=== PATIENT | male | born 1965 | race Two or more races ===

== ENCOUNTER → 2021-01-24 | Emergency (ER) | payer OTHER ==
[~2021-01-24] VITALS: Ht 177.8 cm; Wt 83.9 kg
[~2021-01-24] MED LIST: PEPCID40 MG PO; PROTONIX40 MG PO
== END | disposition home or self-care (01) ==
LOC: ER 21:43
DX: K29.60 Other gastritis without bleeding (principal)

== ENCOUNTER 2025-03-16 00:18 | Emergency (ER) | payer OTHER ==
[~2025-03-16] VITALS: Ht 165.1 cm; Wt 72.6 kg
[2025-03-16 02:02] LABS: HEMATOCRIT 37.4 % (40.1-51.0); HEMOGLOBIN 13.1 g/dL (13.7-17.5); MEAN CORPUSCULAR HEMOGLOBIN 28.9 pg (25.6-32.2); PLATELET COUNT 188 K/uL (163-369); RED BLOOD COUNT 4.53 M/uL (4.63-6.08)
[2025-03-16 02:03] LABS: LYMPH % 27.9 % (19.3-53.1); MONO % 10.8 % (4.7-12.5)
[2025-03-16 02:04] LABS: BASO % 0.5 % (0.1-1.2); EOS % 1.6 % (0.7-7.0); LYMPH # 1.21 (1.18-3.74); MONO # 0.47 (0.24-0.82); NEUT # 2.56 (1.56-6.13)
[2025-03-16 02:05] LABS: EOS # 0.07 (0.04-0.54)
[2025-03-16] MEDS ORDERED: VALACYCLOVIR1000 MG PO (02:15)
== END 2025-03-16 02:27 | disposition home or self-care (01) ==
LOC: ER 01:31
PROVIDERS: General Practice
DX: R21 Rash and other nonspecific skin eruption (principal)

== ENCOUNTER 2025-08-23 16:06 | Emergency (ER) | payer OTHER ==
[~2025-08-23] VITALS: Ht 177.8 cm; Wt 78.0 kg
[~2025-08-23 16:06] MED LIST changes: +VALACYCLOVIR1000 MG PO
[2025-08-23] MEDS ORDERED: ORPHENADRINE CITRATE 30 MG/ML AMPUL IM ONE (16:30)
[2025-08-23] MEDS ORDERED: KETOROLAC TROMETHAMINE 60 MG VIAL IM ONE ×2 (16:30→16:34)
[2025-08-23] MEDS ORDERED: ORPHENADRINE CITRATE 30 MG/ML AMPUL ONE (16:33)
[2025-08-23] MEDS ORDERED: NEURONTIN300 MG PO (19:41)
[2025-08-23] MEDS ORDERED: NORFLEX100MG PO (19:41)
== END 2025-08-23 21:19 | disposition home or self-care (01) ==
LOC: ER 16:06
DX: M54.16 Radiculopathy, lumbar region (principal)

== ENCOUNTER 2025-08-30 12:18 | Emergency (ER) | payer OTHER ==
[~2025-08-30] VITALS: Ht 177.8 cm; Wt 78.5 kg
[~2025-08-30 12:18] MED LIST changes: +NEURONTIN300 MG PO; +NORFLEX100MG PO
[2025-08-30] MEDS ORDERED: PRESION (12:33)
[2025-08-30] MEDS ORDERED: ORPHENADRINE CITRATE 30 MG/ML AMPUL IM ONE (13:15)
[2025-08-30] MEDS ORDERED: DEXAMETHASONE SODIUM PHOSPHATE 4 MG/ML VIAL IM ONE (13:15)
[2025-08-30] MEDS ORDERED: METHYLPREDNISOLONE SOD SUCC 40 MG VIAL IM ONE (13:15)
[2025-08-30] MEDS ORDERED: DEXAMETHASONE SODIUM PHOSPHATE 4 MG/ML VIAL ONE (15:06)
[2025-08-30] MEDS ORDERED: METHYLPREDNISOLONE SOD SUCC 40 MG VIAL ONE (15:06)
[2025-08-30] MEDS ORDERED: ORPHENADRINE CITRATE 30 MG/ML AMPUL ONE (15:06)
[2025-08-30] MEDS ORDERED: WATER FOR INJ.,BACTERIOSTATIC 30 ML VIAL IJ ONE (15:11)
[2025-08-30 15:43] LABS: BASO % 0.0 % (0.1-1.2); EOS # 0.00 (0.04-0.54); EOS % 0.0 % (0.7-7.0); LYMPH # 0.34 (1.18-3.74); LYMPH % 11.5 % (19.3-53.1); MEAN PLATELET VOLUME 10.80 fl (9.4-12.4); MONO # 0.46 (0.24-0.82); NEUT # 2.14 (1.56-6.13); NEUT % 72.6 % (34.0-71.1); RED CELL DISTRIBUTION WIDTH 12.1 % (11.6-14.4)
[2025-08-30 16:04] LABS: MONO % 15.6 % (4.7-12.5)
[2025-08-30 16:09] LABS: ERYTHROCYTE SEDIMENTATION RATE 7 mm/hr (0-20)
[2025-08-30] MEDS ORDERED: 0.9 % SODIUM CHLORIDE 1,000 ML IV SCH (17:00)
== END 2025-08-30 18:33 | disposition home or self-care (01) ==
LOC: ER 12:18
PROVIDERS: General Practice
DX: M51.360 Other intervertebral disc degeneration, lumbar region with discogenic back pain only (principal); B34.9 Viral infection, unspecified; I10 Essential (primary) hypertension

== ENCOUNTER 2025-09-01 14:20 | Inpatient (IN) | payer OTHER ==
[~2025-09-01] VITALS: Ht 177.8 cm; Wt 78.5 kg
[~2025-09-01 14:20] MED LIST changes: +PRESION
--- NOTE | 2025-09-01 15:40 | NUR ---
PTE ALERTA Y ORIENTADA X3, SE YULISA S/V PTE REFIERE QUE SE REALIZO LAB EN [facility] Y PRESENTA GLOBULOS BLANCOS EN 4.44. SE UBICA PTE EN FT
[2025-09-01] MEDS ORDERED: 0.9 % SODIUM CHLORIDE 500 ML IV ONE (16:30)
[2025-09-01] MEDS ORDERED: METHYLPREDNISOLONE SOD SUCC 125 MG VIAL IV ONE (16:30)
[2025-09-01] MEDS ORDERED: METHYLPREDNISOLONE SOD SUCC 125 MG VIAL ONE (17:01)
--- NOTE | 2025-09-01 17:09 | NUR ---
VALERIA SIDDIQUIA REALIZA LAB Y ADMINISTRA TX RAFITA ORDEN MEDICA BAJO MEDIDAS ASEPTICAS. SE ORIENTA PTE QUIEN REFIERE ENTENDER Y ACEPTAR
[2025-09-01 17:32] LABS: BASO % 0.4 % (0.1-1.2); EOS # 0.00 (0.04-0.54); EOS % 0.0 % (0.7-7.0); LYMPH # 0.33 (1.18-3.74); LYMPH % 12.8 % (19.3-53.1); MEAN PLATELET VOLUME 11.30 fl (9.4-12.4); MONO # 0.28 (0.24-0.82); MONO % 10.9 % (4.7-12.5); NEUT # 1.95 (1.56-6.13); NEUT % 75.5 % (34.0-71.1); RED CELL DISTRIBUTION WIDTH 12.4 % (11.6-14.4)
[2025-09-01 17:52] LABS: ALT/SGPT 66.0 U/L (12-78); AST/SGOT 73.0 U/L (15-37); BILIRUBIN TOTAL 0.69 mg/dL (0.3-1.2); BUN CREA RATIO 15.0 (7.0-25.0); COVID-19 AG NEGATIVE (NEGATIVE); CREATININE SERUM 1.75 mg/dL (0.70-1.30); GFR 40.09; GLOBULINA 4.0 G/DL (2.4-3.5); GLUCOSE FASTING 113.0 mg/dL (65-100); OSMOLALITY SERUM 280.0 MOSM/KG (275-295)
[2025-09-01 19:02] LABS: BAND MAN 3.0 %; LYMPHOCYTE MAN 6.0 %; MONOCYTE MAN 10.0 %; NEUTROPHILS MAN 77.0 %
[2025-09-01] MEDS ORDERED: FAMOTIDINE/PF 20 MG in 0.9 % SODIUM CHLORIDE 8 ML IV PUSH SCH (21:24)
[2025-09-01] MEDS ORDERED: ACETAMINOPHEN 325 MG TABLET PO PRN (21:30)
[2025-09-01] MEDS ORDERED: RINGERS SOLUTION,LACTATED 1,000 ML IV SCH (21:30)
[2025-09-01] MEDS ORDERED: ONDANSETRON HCL 4 MG in 0.9 % SODIUM CHLORIDE 50 ML IV PRN (21:30)
[2025-09-02 08:07] LABS: URINE APPEARANCE Clear; URINE BILIRRUBIN Negative (NEGATIVE); URINE BLOOD Trace; URINE COLOR Yellow; URINE GLUCOSE Negative (NEGATIVE); URINE KETONE Negative (NEGATIVE); URINE LEUKOCYTE Negative; URINE NITRATE Negative; URINE UROBILINOGEN 0.2 E.U./dl
[2025-09-02 08:12] LABS: URINE EPITHELIAL CELLS 1.9 uL (0.0-38.8)
[2025-09-02 08:17] LABS: URINE BACTERIA 3.5 uL (0.0-1933); URINE CAST 0.14 uL (0.0-1.40); URINE PROTEIN 100 (NEGATIVE); URINE RBC 0.7 uL (0.0-20.8); URINE WBC 1.6 uL (0.0-23.2)
[2025-09-02 10:02] VITALS: BP 142/89; O2SAT 96
[2025-09-02] MEDS ORDERED: RINGERS SOLUTION,LACTATED 1,000 ML IV SCH (16:15)
[2025-09-02 18:49] VITALS: BP 160/85; O2SAT 98
[2025-09-02 18:59] LABS: BASO % 0.0 % (0.1-1.2); EOS # 0.00 (0.04-0.54); EOS % 0.0 % (0.7-7.0); LYMPH # 0.50 (1.18-3.74); LYMPH % 25.9 % (19.3-53.1); MEAN PLATELET VOLUME 11.00 fl (9.4-12.4); MONO # 0.28 (0.24-0.82); NEUT # 1.14 (1.56-6.13); NEUT % 59.1 % (34.0-71.1); RED CELL DISTRIBUTION WIDTH 12.3 % (11.6-14.4)
[2025-09-02 19:11] LABS: MONO % 14.5 % (4.7-12.5)
[2025-09-02 19:33] LABS: INR 1.02
[2025-09-02 19:38] LABS: ALT/SGPT 101.0 U/L (12-78); AST/SGOT 107.0 U/L (15-37); BILIRUBIN TOTAL 0.8 mg/dL (0.3-1.2); BUN CREA RATIO 17.0 (7.0-25.0); CREATININE SERUM 1.09 mg/dL (0.70-1.30); GFR 69.24; GLOBULINA 3.7 G/DL (2.4-3.5); GLUCOSE FASTING 126.0 mg/dL (65-100); OSMOLALITY SERUM 281.0 MOSM/KG (275-295)
[2025-09-03 03:25] VITALS: BP 146/95; O2SAT 100
[2025-09-03 06:28] LABS: BASO % 1.2 % (0.1-1.2); EOS # 0.01 (0.04-0.54); EOS % 0.4 % (0.7-7.0); LYMPH # 0.85 (1.18-3.74); LYMPH % 33.9 % (19.3-53.1); MEAN PLATELET VOLUME 11.90 fl (9.4-12.4); MONO # 0.52 (0.24-0.82); NEUT # 1.09 (1.56-6.13); NEUT % 43.4 % (34.0-71.1); RED CELL DISTRIBUTION WIDTH 12.1 % (11.6-14.4)
[2025-09-03 06:43] LABS: MONO % 20.7 % (4.7-12.5)
[2025-09-03 06:44] LABS: ALT/SGPT 98.0 U/L (12-78); AST/SGOT 94.0 U/L (15-37); BILIRUBIN TOTAL 0.95 mg/dL (0.3-1.2); BUN CREA RATIO 18.0 (7.0-25.0); CREATININE SERUM 0.9 mg/dL (0.70-1.30); GFR 86.37; GLOBULINA 3.3 G/DL (2.4-3.5); GLUCOSE FASTING 105.0 mg/dL (65-100); LDH 366.0 U/L (87-241); OSMOLALITY SERUM 279.0 MOSM/KG (275-295); PHOSPHOKINASE CREATININE 231.0 U/L (39-308)
[2025-09-03 10:37] VITALS: BP 157/90; O2SAT 99
[2025-09-03] MEDS ORDERED: AMLODIPINE BESYLATE 2.5 MG TABLET PO SCH (17:00)
[2025-09-03 19:56] VITALS: BP 155/85; O2SAT 100
[2025-09-04 03:12] VITALS: BP 139/88; O2SAT 98
[2025-09-04 06:31] LABS: BASO % 0.5 % (0.1-1.2); EOS # 0.01 (0.04-0.54); EOS % 0.5 % (0.7-7.0); LYMPH # 0.73 (1.18-3.74); LYMPH % 34.3 % (19.3-53.1); MEAN PLATELET VOLUME 12.00 fl (9.4-12.4); MONO # 0.29 (0.24-0.82); NEUT # 1.08 (1.56-6.13); NEUT % 50.6 % (34.0-71.1); RED CELL DISTRIBUTION WIDTH 12.1 % (11.6-14.4)
[2025-09-04 06:56] LABS: ALT/SGPT 99.0 U/L (12-78); AST/SGOT 71.0 U/L (15-37); BILIRUBIN TOTAL 0.82 mg/dL (0.3-1.2); BUN CREA RATIO 18.0 (7.0-25.0); CREATININE SERUM 0.79 mg/dL (0.70-1.30); GFR 100.39; GLOBULINA 3.4 G/DL (2.4-3.5); GLUCOSE FASTING 102.0 mg/dL (65-100); OSMOLALITY SERUM 278.0 MOSM/KG (275-295)
[2025-09-04 08:16] LABS: BAND MAN 5.0 %; EOSINOPHIL MAN 1.0 %; LYMPHOCYTE MAN 14.0 %; MONOCYTE MAN 3.0 %; NEUTROPHILS MAN 60.0 %
[2025-09-04 08:17] LABS: MONO % 13.6 % (4.7-12.5)
[2025-09-04 08:19] LABS: MANUAL PLATELET COUNT 62
[2025-09-04] MEDS ORDERED: PANTOPRAZOLE SODIUM 40 MG TABLET.DR PO SCH (09:00)
[2025-09-04 10:08] VITALS: BP 137/90; O2SAT 97
== END 2025-09-04 12:59 | disposition home or self-care (01) | DRG 866 ==
LOC: ER 14:21 → MEDJ 21:26
PROVIDERS: General Practice; Internal Medicine Nephrology; ADMIT Internal Medicine; ATTEND Internal Medicine
DX: A90 Dengue fever [classical dengue] (principal); B34.9 Viral infection, unspecified; E86.0 Dehydration; E86.9 Volume depletion, unspecified; D69.6 Thrombocytopenia, unspecified; D72.819 Decreased white blood cell count, unspecified